=== PATIENT | male | born 1950 | race American Indian/Alaskan Native ===

== ENCOUNTER 2018-07-10 12:20 | Emergency (ER) | payer SELFPAY ==
[2018-07-10] MEDS ORDERED: DUONEB *Not for PRN Use IH ONE (12:57)
[2018-07-10 13:12] LABS: Basophils # (Auto) 0.1 K/mm3 (0.0-0.1); Basophils % (Auto) 0.9 % (0.0-1.8); Eosinophils # (Auto) 0.2 K/mm3 (0.0-0.4); Eosinophils % (Auto) 3.1 % (0.0-4.3); Hematocrit 34.8 % (35.5-45.6); Hemoglobin 11.5 gm/dl (11.8-15.2); Mean Corpuscular HGB Conc 33 % (32-34); Mean Corpuscular Hemoglobin 30 pg (28-32); Mean Corpuscular Volume 90 fl (84-94); Monocytes # (Auto) 0.7 K/mm3 (0.0-0.8); Monocytes % (Auto) 9.3 % (0.0-7.3); Platelet Count 203 K/mm3 (140-440); Red Blood Count 3.87 M/mm3 (3.65-5.03); Red Cell Distribution Width 13.5 % (13.2-15.2)
--- NOTE | 2018-07-10 13:20 | Emergency Department Report ---
HPI - General Chief Complaint: Dyspnea/Respdistress Time Seen by Provider: 07/10/18 12:46 - HPI HPI: 68-year-old male presents to the emergency department via EMS from his outpatient psychiatric facility with complaint of shortness of breath. The patient has a history of COPD and is oxygen dependent at home but says that he does not have a portable unit. He apparently went to his psychiatric facility and appeared to be having signs of shortness of breath and/or respiratory distress. EMS placed him on supplement oxygen and he began feeling better. Apparently, per EMS, the patient's caregiver had said that he has been refusing to use his home oxygen sometimes as well. He has a past medical history as well of a previous CVA with some right-sided weakness and some type of prostate surgery. He denies any fever, chest pain, nausea, vomiting. ED Past Medical Hx - Past Medical History Previous Medical History?: Yes Hx COPD: Yes - Surgical History Past Surgical History?: Yes Additional Surgical History: prostate - Social History Smoking Status: Former Smoker Substance Use Type: None - Medications Home Medications: Home Medications Medication Instructions Recorded Confirmed Last Taken Type ALBUTEROL Inhaler (OR & NICU) 2 puff IH QID PRN #1 inhalation 07/10/18 Unknown Rx [ProAir HFA Inhaler] ALBUTEROL NEB's [Proventil 0.083% 2.5 mg IH TID PRN #1 box 07/10/18 Unknown Rx NEBS] predniSONE [Deltasone] 20 mg PO QDAY #6 tab 07/10/18 Unknown Rx ED Review of Systems ROS: Stated complaint: LESLIE Other details as noted in HPI Comment: All other systems reviewed and negative Constitutional: denies: chills, fever Eyes: denies: eye pain, eye discharge, vision change ENT: denies: ear pain, throat pain Respiratory: cough, shortness of breath, wheezing Cardiovascular: denies: chest pain, edema Gastrointestinal: denies: abdominal pain, nausea, diarrhea Genitourinary: denies: urgency, dysuria Musculoskeletal: denies: back pain, joint swelling, arthralgia Skin: denies: rash, lesions Neurological: denies: headache, weakness, paresthesias Physical Exam - Physical Exam Vital Signs: Vital Signs 07/10/18 12:40 Temperature 98 F Pulse Rate 80 Respiratory 16 Rate Blood Pressure 98/61 O2 Sat by Pulse 96 Oximetry Physical Exam: GENERAL: The patient is well-developed well-nourished. HENT: Normocephalic. Atraumatic. Patient has moist mucous membranes. EYES: Extraocular motions are intact. Pupils equal reactive to light bilaterally. NECK: Supple. Trachea is midline. CHEST/LUNGS: Mild wheezing throughout the chest. No tachypnea or accessory muscle use. There is no respiratory distress noted. HEART/CARDIOVASCULAR: Regular. There is no tachycardia. There is no murmur. ABDOMEN: Abdomen is soft, nontender. Patient has normal bowel sounds. There is no abdominal distention. SKIN: Skin is warm and dry. NEURO: The patient is awake, alert and cooperative. The patient has no focal neurologic deficits. MUSCULOSKELETAL: There is no tenderness or deformity. There is no evidence of acute injury. ED Course Vital Signs 07/10/18 12:40 Temperature 98 F Pulse Rate 80 Respiratory 16 Rate Blood Pressure 98/61 O2 Sat by Pulse 96 Oximetry ED Medical Decision Making - Lab Data Result diagrams: 07/10/18 13:01 07/10/18 13:01 - EKG Data -: EKG Interpreted by [facility] EKG shows normal: sinus rhythm, axis, intervals, QRS complexes, ST-T waves Rate: normal - EKG Data When compared to previous EKG there are: previous EKG unavailable Interpretation: normal EKG - Radiology Data Radiology results: report reviewed, image reviewed interpreted by me: Chest x-ray shows some hyperinflation of the lungs and flattening of the diaphragms consistent with emphysema. No pneumothorax, obvious pneumonia, pleural effusions or focal consolidations. PROCEDURE: CT ANGIO CHEST TECHNIQUE: Computerized tomographic angiography of the chest was performed during the IV injection of iodinated nonionic contrast including image processing. The image data was postprocessed using 2-dimensional multiplanar reformatted (MPR) and 3-dimensional (MIP and/or volume rendered) techniques. HISTORY: SOB, elevated dimer. Evaluate pulmonary embolus COMPARISON: No prior studies are available for comparison. FINDINGS: Pulmonary outflow tract, right and left main pulmonary arteries and their proximal branches: Clear, no filling defects seen to suggest pulmonary embolus. Pericardium: No evidence of pericardial effusion. Thoracic aorta: No evidence of aneurysmal dilatation or dissection. Coronary arteries: Are unremarkable. Mediastinum and hilar regions: Nonspecific subcentimeter lymph nodes are visualized. No pathologically enlarged lymph nodes or masses are identified. Lung Zarate: Moderate diffuse emphysematous changes scattered in both lungs. 9.3 centimeters ground-glass density visualized anteriorly inferiorly in the right upper lobe image 42 series 2 axial image.. On the sagittal view this appears more elongated. This could represent a small parenchymal scar or small area of atelectasis. Follow-up exam in 3-6 months is recommended to ensure there is no developing mass. Small amount of dependent atelectasis is visualized. Linear bands of atelectasis and/or scarring seen in the lower 3rd of the left lung. No dense consolidations or effusions are seen. Upper abdomen: The gallbladder is partially contracted. There is a calcification in the region of the neck of the gallbladder and proximal common bile duct. Etiology is uncertain. I cannot exclude a biliary stone. Follow-up gallbladder ultrasound may be helpful. This abnormality is visualized on image 117 series 2 and measures approximately 1.3 centimeters. Other: No acute bony abnormalities are visualized. IMPRESSION: No evidence of pulmonary embolus. Moderate diffuse emphysematous changes are present. Small ground-glass density right upper lobe as described. Recommend follow-up exam in 3-6 months to ensure this resolves. Gallbladder is partially contracted. There is a calcification in the region of the neck of the gallbladder and proximal common bile duct. Etiology is uncertain. I cannot exclude a biliary stone. Follow-up gallbladder ultrasound suggested. Transcribed By: RAMILA Dictated By: RENU GUIDO MD Electronically Authenticated By: RENU GUIDO MD Signed Date/Time: 07/10/18 7719 - Medical Decision Making This patient presented to the emergency department from his adult daycare with shortness of breath. However the patient has a history of COPD and should be oxygen dependent but only has oxygen at the personal long-term and no portable or mobile unit. On top of that, after speaking with the concierge, apparently the patient has an opportunity at the adult daycare to buy cigarettes and smoke , all while being without his oxygen. She says that since he has been at the personal long-term he has had 4 different visits to emergency departments because of this. The patient was placed on oxygen upon arrival here and had oxygen in route with EMS and deathly appears more comfortable than the report from the daycare. With his supplemental oxygen there has been no hypoxia. No signs of any respiratory distress. Patient's chest x-ray does not show any pleural effusions, focal consolidation, pneumonia, pneumothorax or any other acute process. Labs are mostly unremarkable except for an elevated d-dimer. CT angiography of the chest was done that does not show any pulmonary embolism, dissection or any other acute process other than his chronic emphysema. Patient was given breathing treatments and Solu-Medrol. He has been reevaluated multiple times of multiple hours and has remained stable. For these reasons the patient appears safe for discharge back to his personal long-term. I am unable to provide him with a portable or mobile unit for his oxygen and therefore there is a possibility he has these issues again. However the concierge says that the oxygen is available upon his arrival to the personal long-term and we are sending him via transportation services with oxygen in route. - Differential Diagnosis COPD, asthma, pneumonia, PE Critical Care Time: No Critical care attestation.: If time is entered above; I have spent that time in minutes in the direct care of this critically ill patient, excluding procedure time. ED Disposition Clinical Impression: COPD exacerbation Disposition: DC- TO HOME OR SELFCARE Is pt being admited?: No Condition: Stable Instructions: Chronic Obstructive Pulmonary Disease (ED) Additional Instructions: Please follow-up with your primary care physician and java support engineer. Do not smoke. Use your oxygen. Return to the emergency Department with any worsening of your symptoms or any acute distress. Prescriptions: ALBUTEROL Inhaler (OR & NICU) [ProAir HFA Inhaler] 2 puff IH QID PRN #1 inhalation PRN Reason: Shortness Of Breath ALBUTEROL NEB's [Proventil 0.083% NEBS] 2.5 mg IH TID PRN #1 box PRN Reason: Wheezing predniSONE [Deltasone] 20 mg PO QDAY #6 tab Referrals: PRIMARY CARE, [Primary Care Provider] - [facility] Time of Disposition: 17:22
--- NOTE | 2018-07-10 13:37 | XRay Report ---
AP CHEST: HISTORY: Dyspnea No comparison Mild discoid atelectasis or scarring is noted at the left lung base. The lungs are clear otherwise. No pleural effusion or pneumothorax. Normal heart size and pulmonary vascularity. IMPRESSION: No acute process. Discoid atelectasis versus scarring at the left lung base.
[2018-07-10 13:46] LABS: Alanine Aminotransferase 13 units/L (7-56); Albumin 3.7 g/dL (3.9-5); BUN/Creatinine Ratio 23; Blood Urea Nitrogen 16 mg/dL (9-20); Calcium 8.8 mg/dL (8.4-10.2); Hemolysis Index 10
[2018-07-10] MEDS ORDERED: SOLU-Medrol IV ONE (16:23)
--- NOTE | 2018-07-10 16:27 | Cat Scan Report ---
FINAL REPORT PROCEDURE: CT ANGIO CHEST TECHNIQUE: Computerized tomographic angiography of the chest was performed during the IV injection of iodinated nonionic contrast including image processing. The image data was postprocessed using 2-dimensional multiplanar reformatted (MPR) and 3-dimensional (MIP and/or volume rendered) techniques. HISTORY: SOB, elevated dimer. Evaluate pulmonary embolus COMPARISON: No prior studies are available for comparison. FINDINGS: Pulmonary outflow tract, right and left main pulmonary arteries and their proximal branches: Clear, no filling defects seen to suggest pulmonary embolus. Pericardium: No evidence of pericardial effusion. Thoracic aorta: No evidence of aneurysmal dilatation or dissection. Coronary arteries: Are unremarkable. Mediastinum and hilar regions: Nonspecific subcentimeter lymph nodes are visualized. No pathologically enlarged lymph nodes or masses are identified. Lung Zarate: Moderate diffuse emphysematous changes scattered in both lungs. 9.3 centimeters ground-glass density visualized anteriorly inferiorly in the right upper lobe image 42 series 2 axial image.. On the sagittal view this appears more elongated. This could represent a small parenchymal scar or small area of atelectasis. Follow-up exam in 3-6 months is recommended to ensure there is no developing mass. Small amount of dependent atelectasis is visualized. Linear bands of atelectasis and/or scarring seen in the lower 3rd of the left lung. No dense consolidations or effusions are seen. Upper abdomen: The gallbladder is partially contracted. There is a calcification in the region of the neck of the gallbladder and proximal common bile duct. Etiology is uncertain. I cannot exclude a biliary stone. Follow-up gallbladder ultrasound may be helpful. This abnormality is visualized on image 117 series 2 and measures approximately 1.3 centimeters. Other: No acute bony abnormalities are visualized. IMPRESSION: No evidence of pulmonary embolus. Moderate diffuse emphysematous changes are present. Small ground-glass density right upper lobe as described. Recommend follow-up exam in 3-6 months to ensure this resolves. Gallbladder is partially contracted. There is a calcification in the region of the neck of the gallbladder and proximal common bile duct. Etiology is uncertain. I cannot exclude a biliary stone. Follow-up gallbladder ultrasound suggested.
[2018-07-10 20:55] VITALS: BP 100/52
== END 2018-07-10 20:55 | disposition home or self-care (01) ==
LOC: ED 12:20
DX: J44.1 Chronic obstructive pulmonary disease with (acute) exacerbation (principal); Z87.891 Personal history of nicotine dependence
CPT/HCPCS: 36415; 71045; 71275; 80053; 82803; 84484; 85025; 85379; 93005; 93010; 94640; 96374; 99285; J2930; Q9967